=== PATIENT | female | born 1955 | race American Indian/Alaskan Native ===

== ENCOUNTER 2016-12-16 20:57 | Emergency (ER) | payer MEDICAID ==
[2016-12-16 23:57] LABS: Basophils % (Auto) 0.3 % (0.0-1.8); Eosinophils % (Auto) 4.2 % (0.0-4.3); Hematocrit 38.9 % (30.3-42.9); Hemoglobin 12.5 gm/dl (10.1-14.3); Mean Corpuscular HGB Conc 32 % (30-34); Mean Corpuscular Hemoglobin 28 pg (28-32); Mean Corpuscular Volume 86 fl (79-97); Platelet Count 212 K/mm3 (140-440); Red Blood Count 4.54 M/mm3 (3.65-5.03); Red Cell Distribution Width 15.2 % (13.2-15.2); White Blood Count 5.4 K/mm3 (4.5-11.0)
[2016-12-17 00:17] LABS: Alanine Aminotransferase 15 units/L (7-56); Albumin 3.8 g/dL (3.9-5); BUN/Creatinine Ratio 14; Blood Urea Nitrogen 10 mg/dL (7-17); Calcium 9.7 mg/dL (8.4-10.2); Carbon Dioxide 30 mmol/L (22-30); Glucose 99 mg/dL (65-100)
[2016-12-17 00:18] LABS: Albumin/Globulin Ratio 0.9 %; Alkaline Phosphatase 113 units/L (35-129); Anion Gap 15 mmol/L; Chloride 102.5 mmol/L (98-107); Lipase 31 units/L (13-60); Potassium 3.8 mmol/L (3.6-5.0); Sodium 144 mmol/L (137-145)
[2016-12-17 00:49] LABS: Bilirubin,Urine NEG (Negative); Blood,Urine NEG (Negative); Ketones,Urine NEG (Negative); Leukocyte Esterase,Urine NEG (Negative); Mucus,Urine 1+ /HPF; Nitrite,Urine NEG (Negative); Protein,Urine <15 mg/dL mg/dL (Negative)
[2016-12-17] MEDS ORDERED: ULTRAM ONE (01:22)
[2016-12-17] MEDS ORDERED: ULTRAM PO ONE (01:42)
[2016-12-17] MEDS ORDERED: BENADRYL PO ONE (08:50)
[2016-12-17] MEDS ORDERED: DILAUDID IM ONE (08:50)
[2016-12-17] MEDS ORDERED: ZOFRAN ODT PO ONE (08:50)
--- NOTE | 2016-12-17 08:50 | Emergency Department Report ---
ED General Adult HPI - General Chief complaint: Abdominal Pain Stated complaint: LEFT BACK PAIN Time Seen by Provider: 12/17/16 08:29 Source: patient Mode of arrival: Ambulatory Limitations: No Limitations - History of Present Illness Initial comments: This is a 61-year-old patient that was recently admitted for the same complaint at [facility]. Medical records have been reviewed. Complains of left upper flank pain. She was admitted for this. She had a CT of her abdomen and pelvis which showed no etiology. They proceeded with a CT angiogram of the chest which was negative. The patient states he has no history of chronic pain. However in fact she is a type II diabetic who has been previously prescribed gabapentin. She states that she was just given a prescription for "15 Lortab" at [facility] and she has subsequently run out. She has a history of hepatitis C as well. She denies any dyspnea any fever or chills. The pain is worse on movement and is not related to eating. She has had no vomiting and no diarrhea. She describes the pain as a dull intermittent headache. She was resting comfortably at the time of my encounter. -: days(s) (4) Location: left (flank) Radiation: non-radiation Quality: aching Consistency: intermittent Improves with: none Worsens with: none Associated Symptoms: denies other symptoms - Related Data Home Medications Medication Instructions Recorded Confirmed Last Taken Citalopram Hydrobromide [celeXA] 40 mg PO DAILY 06/27/15 06/27/15 Unknown Gabapentin [Neurontin] 300 mg PO Q8HR 06/27/15 06/27/15 Unknown Lisinopril [Zestril] mg PO QDAY 06/27/15 Unknown Metoprolol [Lopressor] mg PO DAILY 06/27/15 Unknown Zolpidem [Ambien] 10 mg PO QHS 06/27/15 06/27/15 Unknown clonazePAM 1 mg PO DAILY 06/27/15 06/27/15 Unknown diphenhydrAMINE [Benadryl CAP] 50 mg PO QHS PRN 06/27/15 06/27/15 Unknown Previous Rx's Medication Instructions Recorded Last Taken Type Ciprofloxacin HCl [Ciprofloxacin 500 mg PO Q12H #10 tab 06/29/15 Unknown Rx TAB] metroNIDAZOLE [Flagyl] 500 mg PO Q12HR #10 tab 06/29/15 Unknown Rx Cyclobenzaprine [Flexeril] 10 mg PO TID PRN #20 tablet 12/17/16 Unknown Rx HYDROcodone/APAP 5-325 [[place] 1 each PO Q6HR PRN #14 tablet 12/17/16 Unknown Rx 5/325] Allergies Allergy/AdvReac Type Severity Reaction Status Date / Time ketorolac [From Toradol] Allergy Angioedema Verified 12/17/16 06:56 morphine AdvReac Headache Verified 12/17/16 06:56 ED Review of Systems ROS: Stated complaint: LEFT BACK PAIN Other details as noted in HPI Constitutional: denies: chills, fever Eyes: denies: eye pain, eye discharge, vision change ENT: denies: ear pain, throat pain Respiratory: denies: cough, shortness of breath, wheezing Cardiovascular: denies: chest pain, palpitations Endocrine: no symptoms reported Gastrointestinal: denies: abdominal pain, nausea, diarrhea Genitourinary: denies: urgency, dysuria, discharge Musculoskeletal: denies: back pain, joint swelling, arthralgia Skin: denies: rash, lesions Neurological: denies: headache, weakness, paresthesias Psychiatric: denies: anxiety, depression Hematological/Lymphatic: denies: easy bleeding, easy bruising ED Past Medical Hx - Past Medical History Previous Medical History?: Yes Hx Hypertension: Yes Hx Congestive Heart Failure: No Hx Diabetes: No Hx Psychiatric Treatment: Yes (DEPRESSION) Hx Asthma: Yes Hx COPD: No Hx HIV: No - Surgical History Past Surgical History?: Yes Hx Cholecystectomy: Yes Additional Surgical History: hernia tubaligation, hysterectomy, - Social History Smoking Status: Current Every Day Smoker Substance Use Type: None - Medications Home Medications: Home Medications Medication Instructions Recorded Confirmed Last Taken Type Citalopram Hydrobromide [celeXA] 40 mg PO DAILY 06/27/15 06/27/15 Unknown History Gabapentin [Neurontin] 300 mg PO Q8HR 06/27/15 06/27/15 Unknown History Lisinopril [Zestril] mg PO QDAY 06/27/15 Unknown History Metoprolol [Lopressor] mg PO DAILY 06/27/15 Unknown History Zolpidem [Ambien] 10 mg PO QHS 06/27/15 06/27/15 Unknown History clonazePAM 1 mg PO DAILY 06/27/15 06/27/15 Unknown History diphenhydrAMINE [Benadryl CAP] 50 mg PO QHS PRN 06/27/15 06/27/15 Unknown History Ciprofloxacin HCl [Ciprofloxacin 500 mg PO Q12H #10 tab 06/29/15 Unknown Rx TAB] metroNIDAZOLE [Flagyl] 500 mg PO Q12HR #10 tab 06/29/15 Unknown Rx Cyclobenzaprine [Flexeril] 10 mg PO TID PRN #20 tablet 12/17/16 Unknown Rx HYDROcodone/APAP 5-325 [[place] 1 each PO Q6HR PRN #14 tablet 12/17/16 Unknown Rx 5/325] ED Physical Exam - General Limitations: No Limitations General appearance: alert, in no apparent distress, obese - Head Head exam: Present: atraumatic, normocephalic - Eye Eye exam: Present: normal appearance. Absent: scleral icterus - ENT ENT exam: Present: mucous membranes moist - Neck Neck exam: Present: normal inspection - Respiratory Respiratory exam: Present: normal lung sounds bilaterally. Absent: respiratory distress - Cardiovascular Cardiovascular Exam: Present: regular rate, normal rhythm. Absent: systolic murmur, diastolic murmur, rubs, gallop - GI/Abdominal GI/Abdominal exam: Present: soft, normal bowel sounds. Absent: distended, tenderness, guarding, rebound, rigid, organomegaly, mass, bruit, pulsatile mass , hernia - Extremities Exam Extremities exam: Present: normal inspection, normal capillary refill. Absent: calf tenderness - Back Exam Back exam: Present: normal inspection, other (the area of soreness appears to be in the upper left flank. It is over a muscular area. There is no swelling and there is some reproducible tenderness. There is no paraspinal or vertebral tenderness.). Absent: CVA tenderness (R), CVA tenderness (L), paraspinal tenderness, vertebral tenderness - Neurological Exam Neurological exam: Present: alert, oriented X3, CN II-XII intact. Absent: motor sensory deficit - Psychiatric Psychiatric exam: Present: normal affect, normal mood - Skin Skin exam: Present: warm, dry, intact, normal color. Absent: rash ED Course Vital Signs 12/16/16 12/16/16 12/17/16 23:02 23:06 05:09 Temperature 98.0 F 98 F 98.2 F Pulse Rate 70 68 69 Respiratory 18 18 18 Rate Blood Pressure 150/106 156/106 173/113 Blood Pressure [Right] O2 Sat by Pulse 95 97 98 Oximetry 12/17/16 07:04 Temperature 97.7 F Pulse Rate 60 Respiratory 20 Rate Blood Pressure Blood Pressure 190/97 [Right] O2 Sat by Pulse 98 Oximetry - Reevaluation(s) Reevaluation #1: Of note is that the patient denies any sort of chronic pain or even fibromyalgia. I don't know another indication for gabapentin. In addition the patient has hepatitis C. I don't know the cause of this. However she is requesting IM medication and is allergic to morphine. There are A given number of red flags for chronic pain syndrome here. 12/17/16 08:53 ED Medical Decision Making - Lab Data Result diagrams: 12/16/16 23:32 12/16/16 23:32 Laboratory Results - last 24 hr 12/16/16 12/16/16 12/16/16 23:32 23:32 Unknown WBC 5.4 RBC 4.54 Hgb 12.5 Hct 38.9 MCV 86 MCH 28 MCHC 32 RDW 15.2 Plt Count 212 Lymph % (Auto) 25.3 [place] % (Auto) 6.3 Eos % (Auto) 4.2 Baso % (Auto) 0.3 Lymph # 1.4 [place] # 0.3 Eos # 0.2 Baso # 0.0 Seg Neutrophils % 63.9 Seg Neutrophils # 3.4 Sodium 144 Potassium 3.8 Chloride 102.5 Carbon Dioxide 30 Anion Gap 15 BUN 10 Creatinine 0.7 Estimated GFR > 60 BUN/Creatinine Ratio 14 Glucose 99 Calcium 9.7 Total Bilirubin 0.30 AST 22 ALT 15 Alkaline Phosphatase 113 Total Protein 8.0 Albumin 3.8 L Albumin/Globulin Ratio 0.9 Lipase 31 Urine Color Yellow Urine Turbidity Clear Urine pH 5.0 Ur Specific [place] 1.035 H Urine Protein <15 mg/dl Urine Glucose (UA) Neg Urine Ketones Neg Urine Blood Neg Urine Nitrite Neg Urine Bilirubin Neg Urine Urobilinogen 2.0 Ur Leukocyte Esterase Neg Urine WBC (Auto) 3.0 Urine RBC (Auto) 3.0 U Epithel Cells (Auto) 5.0 Calcium Oxalate Crystal 2+ Urine Mucus 1+ - Radiology Data Patient is clinically stable. She's had an extensive medical workup. I will review an EKG prior to referring her for outpatient management. Critical care attestation.: If time is entered above; I have spent that time in minutes in the direct care of this critically ill patient, excluding procedure time. ED Disposition Clinical Impression: Musculoskeletal pain, Essential hypertension Disposition: TO HOME OR SELFCARE Is pt being admited?: No Does the pt Need Aspirin: No Condition: Stable Instructions: Abdominal Pain (ED), Hypertension (ED), Flank Pain (ED) Additional Instructions: Evaluation as an outpatient and treatment is recommended. See referral. Rx as needed for pain. Return any acute change. Prescriptions: Cyclobenzaprine [Flexeril] 10 mg PO TID PRN #20 tablet PRN Reason: Muscle Spasm HYDROcodone/APAP 5-325 [[place] 5/325] 1 each PO Q6HR PRN #14 tablet PRN Reason: Pain Referrals: PRIMARY CARE, [Primary Care Provider] - 3-5 Days [facility] [Provider Group] - 3-5 Days Time of Disposition: 08:57
[2016-12-17] MEDS ORDERED: CATAPRES PO ONE (08:54)
[2016-12-17 10:53] VITALS: BP 155/95
== END 2016-12-17 10:55 | disposition home or self-care (01) ==
LOC: ED 20:57
DX: M79.1 Myalgia (principal); I10 Essential (primary) hypertension; J45.909 Unspecified asthma, uncomplicated; F17.200 Nicotine dependence, unspecified, uncomplicated; Z90.49 Acquired absence of other specified parts of digestive tract; Z88.6 Allergy status to analgesic agent
CPT/HCPCS: 36415; 80053; 81001; 83690; 85025; 93005; 93010; 96372; 99284; J1170; Q0162